=== PATIENT | male | born 1990 ===

== ENCOUNTER 2022-02-26 16:09 | Emergency (ER) | payer OTHER ==
[2022-02-26] MEDS ORDERED: Boostrix 0.5 ML (Tdap) VIAL (>/=7 yrs of age) ONE (16:55)
[2022-02-26] MEDS ORDERED: Bacitracin 1 PK ONE (17:09)
== END 2022-02-26 17:19 | disposition home or self-care (01) ==
LOC: ERS 16:09
DX: L03.113 Cellulitis of right upper limb (principal); Z23 Encounter for immunization
CPT/HCPCS: 90471; 90715